=== PATIENT | male | born 1970 | race Caucasian/White ===

== ENCOUNTER 2017-05-09 19:20 | Emergency (ER) | payer BC ==
[~2017-05-09] VITALS: Ht 160 cm; Wt 104.6 kg
[~2017-05-09 19:20] MED LIST: JANU25TA PO; LUTE20CA PO; METF-324 PO; OMEGCAP21 PO; PRIN5TAB PO; PROM25SU8 PO
[2017-05-09 19:40] VITALS: BP 160/99; PULSE 73; RESP 16; TEMP 98.4; O2SAT 98
[2017-05-09] MEDS ORDERED: IBUP800T23 PO (20:37)
[2017-05-09] MEDS ORDERED: PENI250T PO (20:37)
--- NOTE | 2017-05-09 20:38 | PD ---
HPI Chief Complaint: Oral / Dental Pain or Problem Time Seen by Provider: 20:00 Travel History International Travel<30 days: No Contact w/Intl Traveler<30days: No Traveled to known affect area: No History of Present Illness HPI 46-year-old male presents emergency department for evaluation of left dental pain 5 days. He reports the pain is located near a tooth he had a root canal several years ago. He reports the pain is constant, nonradiating, worse with chewing heat and cold, unrelieved by OTC Aleve, severity 7 out of 10. No associating symptoms. He denies fever, chills, chest pain, shortness of breath , abdominal pain, nausea or vomiting. PFSH Past Medical History Arthritis: Yes Asthma: Yes (EXERCISE INDUCED) Autoimmune Disease: No Blood Disorders: No Cancer: No Cardiovascular Problems: Yes High Cholesterol: Yes Diabetes: Yes (type 2) Patient Takes Glucophage: No Diminished Hearing: No Endocrine: No Gastrointestinal Disorders: Yes (chronic diarrhea) Genitourinary: Yes Hypertension: Yes (TAKES NO MEDS) Kidney Stones: Yes Musculoskeletal: Yes Neurologic: Yes (BROKEN NECK) Psychiatric: Yes Reproductive: No Respiratory: Yes (ASTHMATIC CONDITION) Immunizations Current: No Tetanus Vaccination: < 5 Years Influenza Vaccination: No PNEUMOCCOCAL Vaccine (Year): 2 ?: Not Past Surgical History Abdominal Surgery: No Cardiac Surgery: No Ear Surgery: No Endocrine Surgery: No Eye Surgery: No Genitourinary Surgery: Yes (STENTS, LITHOTRIPSY- KIDNEY STONES REMOVED) Gynecologic Surgery: No Oral Surgery: No Thoracic Surgery: No Other Surgery: Yes (ANKLE SURGERY, RT SHOULDER, NECK, CYST REMOVED ON COCCYX) Social History Alcohol Use: Yes (Rarely) Tobacco Use: No Substance Use: No Allergies-Medications (Allergen,Severity, Reaction): Coded Allergies: No Known Allergies (Unverified , 05/09/17) Reported Meds & Prescriptions Reported Meds & Active Scripts Active No Active Prescriptions or Reported Medications Review of Systems Except as stated in HPI: all other systems reviewed are Neg Physical Exam Narrative GENERAL: Alert, well-appearing male, holding the left side of his face. SKIN: Focused skin assessment warm/dry. HEAD: Atraumatic. Normocephalic. EYES: Pupils equal and round. No scleral icterus. No injection or drainage. ENT: No nasal bleeding or discharge. Mucous membranes pink and moist. MOUTH: Tooth #20 and 21 tender to palpation, mild gum erythema. NECK: Trachea midline. No JVD. CARDIOVASCULAR: Regular rate and rhythm. No murmur appreciated. RESPIRATORY: No accessory muscle use. Clear to auscultation. Breath sounds equal bilaterally. GASTROINTESTINAL: Abdomen soft, non-tender, nondistended. Hepatic and splenic margins not palpable. MUSCULOSKELETAL: No obvious deformities. No clubbing. No cyanosis. No edema. NEUROLOGICAL: Awake and alert. No obvious cranial nerve deficits. Motor grossly within normal limits. Normal speech. PSYCHIATRIC: Appropriate mood and affect; insight and judgment normal. Data Data Last Documented VS Vital Signs Date Time Temp Pulse Resp B/P Pulse Ox O2 Delivery O2 Flow Rate FiO2 05/09/17 19:40 98.4 73 16 160/99 98 MDM Medical Decision Making Medical Screen Exam Complete: Yes Emergency Medical Condition: Yes Differential Diagnosis Dental caries, dental abscess, periodontal disease, TMJ Narrative Course 46 old male presents emergency department for left lower dental pain 5 days. He reports he has an appointment with his dentist for next week. He reports the pain is worse with eating, chewing, heat and cold. Similar to previous dental pain in the past. No other associating symptoms. Denies fever or chills. On exam he is found to have tenderness over tooth #21 and 20. He also has tenderness to the left lower jaw and the right region of the teeth. Patient was put on antibiotics instructed to follow up with his dentist. Return to emergency department if he develops worsening symptoms. Patient agrees to plan Diagnosis Primary Impression: Pain, dental Referrals: Dentist Additional Instructions: Take medication as prescribed. Follow-up with the dentist as scheduled. Return to emergency if new or worsening symptoms. Scripts Penicillin V Potassium 250 Mg [id number] Mg PO Q6H #28 TAB Prov:Marilynn Stubbs 05/09/17 Ibuprofen 800 Mg [id number] Mg PO Q8H PRN (Pain/Inflammation) #30 TAB Prov:Marilynn Stubbs 05/09/17 Disposition: 01 DISCHARGE HOME Condition: Stable Marilynn Stubbs May 09, 2017 20:38
[2017-05-09] MEDS ORDERED: KETOROLAC TROMETHAMINE 60 MG/2 ML (IM) VIAL IM ONE (20:45)
== END 2017-05-09 20:45 | disposition home or self-care (01) ==
LOC: PHEFT 19:20
DX: K08.89 Other specified disorders of teeth and supporting structures (principal); E78.00 Pure hypercholesterolemia, unspecified; E11.9 Type 2 diabetes mellitus without complications; I10 Essential (primary) hypertension; J45.909 Unspecified asthma, uncomplicated
CPT/HCPCS: 96372; 99284; J1885

== ENCOUNTER 2017-10-13 17:14 | Emergency (ER) | payer BC ==
[~2017-10-13] VITALS: Ht 162.6 cm; Wt 100.7 kg
[~2017-10-13 17:14] MED LIST changes: +IBUP1TAB7 PO; -JANU25TA PO; -LUTE20CA PO; -METF-324 PO; -OMEGCAP21 PO; +PENI250T PO; -PRIN5TAB PO; -PROM25SU8 PO
[2017-10-13 17:20] VITALS: BP 168/79; PULSE 82; RESP 16; TEMP 99; O2SAT 97
[2017-10-13] MEDS ORDERED: SODIUM CHLORIDE 0.9% FLUSH 10 ML FLUSH IVF PRN (17:30)
[2017-10-13] MEDS ORDERED: CLINDAMYCIN INJ 900 MG in SODIUM CHLORIDE 0.9% INJ 100 ML IV ONE (17:30)
[2017-10-13] MEDS ORDERED: LIDOCAINE HCL 1% 50 ML VIAL INFIL ONE (17:30)
[2017-10-13 18:04] LABS: AUTOMATED NEUTROPHIL # 6.1 TH/MM3 (1.8-7.7); BASOPHIL % 0.4 % (0.0-2.0); EOSINOPHIL # 0.1 TH/MM3 (0-0.4); EOSINOPHIL % 1.4 % (0.0-4.0); HEMATOCRIT 41.8 % (39.0-51.0); HEMO FLAGS DIFF FINAL; LYMPHOCYTE # 1.9 TH/MM3 (1.0-4.8); MEAN CORPUSCULAR HEMOGLOBIN 27.5 PG (27.0-34.0); MEAN CORPUSCULAR HGB CONC 32.8 % (32.0-36.0); MONO % 4.8 % (0.0-8.0); NEUT % 70.4 % (16.0-70.0); PLATELET COUNT 188 TH/MM3 (150-450); RED BLOOD COUNT 4.98 MIL/MM3 (4.50-5.90); RED CELL DISTRIBUTION WIDTH 12.2 % (11.6-17.2); WHITE BLOOD COUNT 8.5 TH/MM3 (4.0-11.0)
--- NOTE | 2017-10-13 18:08 | PD ---
HPI . Abscess Chief Complaint: Skin Problem Time Seen by Provider: 17:30 Travel History International Travel<30 days: No Contact w/Intl Traveler<30days: No Traveled to known affect area: No History of Present Illness HPI This patient presents complaining with an abdominal wall abscess which started about a week ago. It started draining purulent material last night. It has also become much more painful. He rates the pain 7/10. He has been treating it at home with warm Epsom salt soaks. No associated fever. This patient has a history of diabetes. He is prone to skin abscesses. He states that they normally just rupture at home and he does not have to be seen by doctor for them. He states that he has not been on any recent antibiotics. PFSH Past Medical History Arthritis: Yes Asthma: Yes (EXERCISE INDUCED) Autoimmune Disease: No Blood Disorders: No Cancer: No Cardiovascular Problems: Yes (hx of HTN but controlled by diet) High Cholesterol: Yes Diabetes: Yes Patient Takes Glucophage: No Diminished Hearing: No Endocrine: No Gastrointestinal Disorders: Yes (chronic diarrhea) Genitourinary: Yes Hypertension: Yes (TAKES NO MEDS) Kidney Stones: Yes Musculoskeletal: Yes Neurologic: Yes (BROKEN NECK) Psychiatric: Yes Reproductive: No Respiratory: Yes (ASTHMATIC CONDITION) Immunizations Current: No PNEUMOCCOCAL Vaccine (Year): 2 Past Surgical History Abdominal Surgery: No Cardiac Surgery: No Ear Surgery: No Endocrine Surgery: No Eye Surgery: No Genitourinary Surgery: Yes (STENTS, LITHOTRIPSY- KIDNEY STONES REMOVED) Gynecologic Surgery: No Oral Surgery: No Thoracic Surgery: No Other Surgery: Yes (ANKLE SURGERY, RT SHOULDER, NECK, CYST REMOVED ON COCCYX) Social History Alcohol Use: Yes (Rarely) Tobacco Use: No Substance Use: No Allergies-Medications (Allergen,Severity, Reaction): Coded Allergies: No Known Allergies (Unverified Allergy, Unknown, 10/13/17) Reported Meds & Prescriptions Reported Meds & Active Scripts Active Metformin (Metformin HCl) 850 Mg Tab 850 Mg PO BIDPC 30 Days Review of Systems Except as stated in HPI: all other systems reviewed are Neg General / Constitutional: No: Fever, Chills Gastrointestinal: No: Nausea, Vomiting, Loss of Appetite Skin: Positive Change in Pigmentation, Positive Other (draining wound) Physical Exam Narrative GENERAL: Awake and alert and in no acute distress. SKIN: Warm and dry. He has an area of erythema under the left side of his pannus. It is markedly tender. There is an area in the center about the size of a quarter which is draining some purulent material. HEAD: Normocephalic/atraumatic. EYES: Pupils are equal. Extraocular movements are intact. NECK: Normal range of motion. CARDIOVASCULAR: Regular rate and rhythm. RESPIRATORY: Nonlabored respirations. MUSCULOSKELETAL: Atraumatic. NEUROLOGICAL: Nonfocal. PSYCHIATRIC: Appropriate mood and affect. Data Data Last Documented VS Vital Signs Date Time Temp Pulse Resp B/P (MAP) Pulse Ox O2 Delivery O2 Flow Rate FiO2 10/13/17 20:02 79 16 97 10/13/17 19:59 Room Air 10/13/17 17:20 99.0 Orders Orders Basic Metabolic Panel (Bmp) (10/13/17 17:30) Complete Blood Count With Diff (10/13/17 17:30) Blood Culture (10/13/17 17:30) Wound Culture And Gram Stain (10/13/17 17:30) Iv Access Insert/Monitor (10/13/17 17:30) Lidocaine 1% Inj (50 Ml) (Xylocaine 1% I (10/13/17 17:30) Sodium Chloride 0.9% Flush (Ns Flush) (10/13/17 17:30) Clindamycin Inj (Cleocin Inj) (10/13/17 17:30) Lactic Acid (10/13/17 17:32) Ct Abd/Pel W Iv Contrast(Rout) (10/13/17 17:30) Morphine Inj (Morphine Inj) (10/13/17 18:15) Ondansetron Inj (Zofran Inj) (10/13/17 18:15) Mrsa Screen (10/13/17 18:08) Iohexol 350 Inj (Omnipaque 350 Inj) (10/13/17 18:40) Ed Discharge Order (10/13/17 19:35) Labs Laboratory Tests Test 10/13/17 17:40 10/13/17 17:45 Lactic Acid Level 1.8 mmol/L White Blood Count 8.5 TH/MM3 Red Blood Count 4.98 MIL/MM3 Hemoglobin 13.7 GM/DL Hematocrit 41.8 % Mean Corpuscular Volume 84.0 FL Mean Corpuscular Hemoglobin 27.5 PG Mean Corpuscular Hemoglobin Concent 32.8 % Red Cell Distribution Width 12.2 % Platelet Count 188 TH/MM3 Mean Platelet Volume 9.1 FL Neutrophils (%) (Auto) 70.4 % Lymphocytes (%) (Auto) 23.0 % Monocytes (%) (Auto) 4.8 % Eosinophils (%) (Auto) 1.4 % Basophils (%) (Auto) 0.4 % Neutrophils # (Auto) 6.1 TH/MM3 Lymphocytes # (Auto) 1.9 TH/MM3 Monocytes # (Auto) 0.4 TH/MM3 Eosinophils # (Auto) 0.1 TH/MM3 Basophils # (Auto) 0.0 TH/MM3 CBC Comment DIFF FINAL Differential Comment Blood Urea Nitrogen 10 MG/DL Creatinine 0.92 MG/DL Random Glucose 372 MG/DL Calcium Level 8.6 MG/DL Sodium Level 136 MEQ/L Potassium Level 3.8 MEQ/L Chloride Level 102 MEQ/L Carbon Dioxide Level 25.4 MEQ/L Anion Gap 9 MEQ/L Estimat Glomerular Filtration Rate 88 ML/MIN MDM Medical Decision Making Medical Screen Exam Complete: Yes Emergency Medical Condition: Yes Differential Diagnosis My differential diagnosis includes but is not limited to localized wound infection, cellulitis, abscess Narrative Course This patient presents with cellulitis/abscess of the lower abdominal wall. He is diabetic. The area has been IV and cultures have been sent. I have also sent a CBC, blood cultures and lactic acid he is being empirically treated with clindamycin. CT scan of the abdomen is pending to rule out intra-peritoneal extension. CBC & BMP Diagram 10/13/17 17:45 Calcium Level 8.6 LA 1.8 No evidence of sepsis. Last Impressions Abdomen/Pelvis CT 10/13/17 1730 Signed Impressions: Service Date/Time: Friday, October 13, 2017 18:24 - CONCLUSION: 1. Lower quadrant abscess with packing material and surrounding induration of the fat. No focal fluid collections. 2. Nonobstructing stone in the lower pole the left kidney. 3. Solitary small calcified gallstone. 4. Mild steatosis the liver. Derek Chen MD Procedures Procedure Narrative INCISION AND DRAINAGE OF ABSCESS: The area was prepped and was sterilely draped. A subcutaneous wheal of 1% Xylocaine with epi with a total number 10 mL was used to anesthetize the area properly. A number 11 scalpel was used to make a 2 -cm incision across the area of the abscess. The abscess was drained, complex loculations were broken down. Cultures were obtained. Quarter inch iodoform packing was placed in the wound. Sterile dressing applied. Patient advised to have packing removed in two days. Diagnosis Primary Impression: Abdominal wall abscess Patient Instructions: Abscess Incision and Drainage (DC), General Instructions , Narcotic given in the ED Med/Other Pt SpecificInfo: Prescription(s) given Scripts Metformin (Metformin) 850 Mg Tab 850 MG PO BIDPC for Blood Sugar Management for 30 Days, TAB 0 Refills Prov: Joyce Mars MD 10/13/17 Disposition: 01 DISCHARGE HOME Condition: Stable Karlee Orr MD Oct 13, 2017 18:08
[2017-10-13 18:12] LABS: POTASSIUM 3.8 MEQ/L (3.5-5.1)
[2017-10-13 18:15] LABS: BICARBONATE 25.4 MEQ/L (21.0-32.0)
[2017-10-13] MEDS ORDERED: MORPHINE SULFATE 4 MG/ML INJ IV ONE (18:15)
[2017-10-13] MEDS ORDERED: ONDANSETRON HCL 4 MG/2 ML VIAL IV PUSH ONE (18:15)
[2017-10-13] MEDS ORDERED: NORC5TAB PO (18:16)
[2017-10-13] MEDS ORDERED: BACT800T5 PO (18:16)
[2017-10-13 18:40] VITALS: BP 128/67; PULSE 79; RESP 16
[2017-10-13] MEDS ORDERED: IOHEXOL 350 MG/ML 10 ML VIAL (for RAD DIAG) IVCONTRAST ONE (18:40)
--- NOTE | 2017-10-13 19:07 | RADRPT ---
EXAM DATE/TIME: 10/13/2017 18:24 [facility] COMPARISON: No previous studies available for comparison. INDICATIONS : Abdominal wall abscess for one week. IV CONTRAST: 85 cc Omnipaque 350 (iohexol) IV ORAL CONTRAST: No oral contrast ingested. RADIATION DOSE: 20.94 CTDIvol (mGy) MEDICAL HISTORY : Hypertension. Diabetes mellitus type 2. SURGICAL HISTORY : None. ENCOUNTER: Initial ACUITY: 1 day PAIN SCALE: 5/10 LOCATION: lower abdomen TECHNIQUE: Volumetric scanning of the abdomen and pelvis was performed. Using automated exposure control and ad justment of the mA and/or kV according to patient size, radiation dose was kept as low as reasonably achievable to obtain optimal diagnostic quality images. DICOM format image data is available electro nically for review and comparison. FINDINGS: LOWER LUNGS: The visualized lower lungs are clear. LIVER: Mild diffuse fatty change. No focal lesions.. There is no dilation of the biliary tree. 6 mm calci fied stone in the gallbladder fundus.. SPLEEN: Normal size without lesion. PANCREAS: Within normal limits. KIDNEYS: Symmetric size. No evidence of hydronephrosis. Solitary 4 mm calcified stone lower pole left kidney . ADRENAL GLANDS: Within normal limits. VASCULAR: There is no aortic aneurysm. BOWEL/MESENTERY: No dilated loops of small or large bowel. The appendix is identified in the right lower quadrant and has a normal appearance. ABDOMINAL WALL: There is a focal area of discontinuity of the skin in the left lower quadrant with internal hyperdens ity and gas suggesting packing material. The area of hyperdensity and gas measures 2.9 cm in width. There is some mild induration of the adjacent skin and subcutaneous fat. No induration deep to scar this fashion. No focal fluid collections. RETROPERITONEUM: There is no lymphadenopathy. BLADDER: Mild distention. Smooth margins. REPRODUCTIVE: Within normal limits. INGUINAL: There is no lymphadenopathy or hernia. MUSCULOSKELETAL: Within normal limits for patient age. CONCLUSION: 1. Lower quadrant abscess with packing material and surrounding induration of the fat. No focal flui d collections. 2. Nonobstructing stone in the lower pole the left kidney. 3. Solitary small calcified gallstone. 4. Mild steatosis the liver. Derek Chen MD on October 13, 2017 at 18:53 Board Certified Radiologist. This report was verified electronically.
[2017-10-13] MEDS ORDERED: METF850T PO (19:34)
--- NOTE | 2017-10-13 19:34 | PD ---
Physical Exam Date Seen by Provider: Oct 13, 2017 Time Seen by Provider: 19:29 Narrative Accepted in transfer of care from Dr. Orr GENERAL: Well-developed well-nourished male in no acute distress no respiratory distress SKIN: Warm and dry. Dressing applied to left lower quadrant abdominal wall pannus area status post recent I&D with packing by Dr. Orr GASTROINTESTINAL: Abdomen soft, non-tender, nondistended. Data Data Last Documented VS Vital Signs Date Time Temp Pulse Resp B/P (MAP) Pulse Ox O2 Delivery O2 Flow Rate FiO2 10/13/17 18:42 16 10/13/17 18:40 79 128/67 (87) Room Air 10/13/17 17:20 99.0 97 Orders Orders Basic Metabolic Panel (Bmp) (10/13/17 17:30) Complete Blood Count With Diff (10/13/17 17:30) Blood Culture (10/13/17 17:30) Wound Culture And Gram Stain (10/13/17 17:30) Iv Access Insert/Monitor (10/13/17 17:30) Lidocaine 1% Inj (50 Ml) (Xylocaine 1% I (10/13/17 17:30) Sodium Chloride 0.9% Flush (Ns Flush) (10/13/17 17:30) Clindamycin Inj (Cleocin Inj) (10/13/17 17:30) Lactic Acid (10/13/17 17:32) Ct Abd/Pel W Iv Contrast(Rout) (10/13/17 17:30) Morphine Inj (Morphine Inj) (10/13/17 18:15) Ondansetron Inj (Zofran Inj) (10/13/17 18:15) Mrsa Screen (10/13/17 18:08) Iohexol 350 Inj (Omnipaque 350 Inj) (10/13/17 18:40) Labs Laboratory Tests Test 10/13/17 17:40 10/13/17 17:45 Lactic Acid Level 1.8 mmol/L White Blood Count 8.5 TH/MM3 Red Blood Count 4.98 MIL/MM3 Hemoglobin 13.7 GM/DL Hematocrit 41.8 % Mean Corpuscular Volume 84.0 FL Mean Corpuscular Hemoglobin 27.5 PG Mean Corpuscular Hemoglobin Concent 32.8 % Red Cell Distribution Width 12.2 % Platelet Count 188 TH/MM3 Mean Platelet Volume 9.1 FL Neutrophils (%) (Auto) 70.4 % Lymphocytes (%) (Auto) 23.0 % Monocytes (%) (Auto) 4.8 % Eosinophils (%) (Auto) 1.4 % Basophils (%) (Auto) 0.4 % Neutrophils # (Auto) 6.1 TH/MM3 Lymphocytes # (Auto) 1.9 TH/MM3 Monocytes # (Auto) 0.4 TH/MM3 Eosinophils # (Auto) 0.1 TH/MM3 Basophils # (Auto) 0.0 TH/MM3 CBC Comment DIFF FINAL Differential Comment Blood Urea Nitrogen 10 MG/DL Creatinine 0.92 MG/DL Random Glucose 372 MG/DL Calcium Level 8.6 MG/DL Sodium Level 136 MEQ/L Potassium Level 3.8 MEQ/L Chloride Level 102 MEQ/L Carbon Dioxide Level 25.4 MEQ/L Anion Gap 9 MEQ/L Estimat Glomerular Filtration Rate 88 ML/MIN [facility] Medical Record Reviewed: Yes Supervised Visit with LAVONNE: No Interpretation(s) Lactic acid: 1.8, not elevated Last Impressions Abdomen/Pelvis CT 10/13/17 1730 Signed Impressions: Service Date/Time: Sunday, October 13, 2017 18:24 - CONCLUSION: 1. Lower quadrant abscess with packing material and surrounding induration of the fat. No focal fluid collections. 2. Nonobstructing stone in the lower pole the left kidney. 3. Solitary small calcified gallstone. 4. Mild steatosis the liver. Derek Chen MD CBC & BMP Diagram 10/13/17 17:45 Calcium Level 8.6 Vital Signs Date Time Temp Pulse Resp B/P (MAP) Pulse Ox O2 Delivery O2 Flow Rate FiO2 10/13/17 18:42 16 10/13/17 18:40 79 16 128/67 (87) Room Air 10/13/17 17:20 99.0 82 16 168/79 (108) 97 Differential Diagnosis Accepted in transfer of care from Dr. Orr; please refer to her dictation Narrative Course Accepted in transfer of care from Dr. Orr for follow up of pending CT abd/ pel and disposition as plan to d/c to home with Rx for antibiotic and recheck for packing removal in 2 days. Patient is aware of his lab and imaging results. Patient again denies any fever or chills. Patient is tolerating antibiotic well in the emergency department has prescriptions for outpatient antibiotic. Patient is stable for outpatient management but does report that he does need a refill of his metformin. Diagnosis Primary Impression: Abdominal wall abscess Referrals: [facility] call for appointment Primary Care Physician call for appointment Patient Instructions: General Instructions, Narcotic given in the ED, Abscess Incision and Drainage (DC) Med/Other Pt SpecificInfo: Prescription(s) given Scripts Metformin (Metformin) 850 Mg Tab 850 MG PO BIDPC for Blood Sugar Management for 30 Days, TAB 0 Refills Prov: Joyce Mars MD 10/13/17 Disposition: 01 DISCHARGE HOME Condition: Stable Joyce Mars MD Oct 13, 2017 19:34
[2017-10-13 19:59] VITALS: BP 143/69; PULSE 79; RESP 16; O2SAT 97
== END 2017-10-13 20:04 | disposition home or self-care (01) ==
LOC: PHED 17:14
DX: L02.211 Cutaneous abscess of abdominal wall (principal); B95.1 Streptococcus, group B, as the cause of diseases classified elsewhere; E11.9 Type 2 diabetes mellitus without complications; I10 Essential (primary) hypertension; E78.00 Pure hypercholesterolemia, unspecified; Z79.84 Long term (current) use of oral hypoglycemic drugs; Z87.39 Personal history of other diseases of the musculoskeletal system and connective tissue; Z87.09 Personal history of other diseases of the respiratory system; Z86.79 Personal history of other diseases of the circulatory system; Z87.19 Personal history of other diseases of the digestive system; Z87.448 Personal history of other diseases of urinary system; Z86.69 Personal history of other diseases of the nervous system and sense organs
CPT/HCPCS: 74177; 80048; 83605; 85025; 86403; 87040; 87070; 87081; 96365; 96375; 99285; J2270; J2405; Q9967; 87205

== ENCOUNTER 2017-10-15 15:46 | Inpatient (IN) | payer BC ==
[~2017-10-15] VITALS: Ht 162.6 cm; Wt 101.6 kg
[~2017-10-15 15:46] MED LIST changes: -IBUP1TAB7 PO; +METF850T PO; -PENI250T PO
[2017-10-15 16:02] VITALS: BP 168/80; PULSE 75; RESP 18; TEMP 98.5; O2SAT 98
[2017-10-15] MEDS ORDERED: MORPHINE SULFATE 4 MG/ML INJ IM ONE (17:30)
[2017-10-15] MEDS ORDERED: ONDANSETRON ODT 4 MG TAB PO ONE (17:30)
[2017-10-15] MEDS ORDERED: PIPERACIL-TAZO 4.5 GM PREMIX 100 ML IV STA (17:36)
[2017-10-15] MEDS ORDERED: VANCOMYCIN INJ 1,000 MG in SODIUM CHLOR 0.9% 250 ML INJ 250 ML IV STA (17:36)
--- NOTE | 2017-10-15 17:42 | PD ---
Physical Exam Date Seen by Provider: Oct 15, 2017 Time Seen by Provider: 17:40 Narrative 47-year-old male came to the emergency room with history of wound reevaluation. He was seen 2 days ago in this emergency room for abdominal wall abscess that was opened and drained by the ER physician. Patient was discharged home on antibiotics. Patient has been taking the antibiotic that she supposed to. He came to get the packing taken out but meanwhile he says that his redness around the wound is spreading and the pain is still severe. Patient is being seen by the nurse practitioner and I evaluated the wound. The wound is deep with some surrounding redness. Patient is diabetic and the wound culture was positive for group B strep. At this point I have recommended to do blood test and admit the patient for outpatient treatment failure. He will be started on IV Zosyn. I've asked the nurse practitioner to consult the general surgeon as well. Patient and his are okay with this plan. Data Data Last Documented VS Vital Signs Date Time Temp Pulse Resp B/P (MAP) Pulse Ox O2 Delivery O2 Flow Rate FiO2 10/15/17 16:02 98.5 75 18 168/80 (109) 98 Orders Orders Morphine Inj (Morphine Inj) (10/15/17 17:30) Ondansetron Odt (Zofran Odt) (10/15/17 17:30) Complete Blood Count With Diff (10/15/17 17:36) Comprehensive Metabolic Panel (10/15/17 17:36) Prothrombin Time / Inr (Pt) (10/15/17 17:36) Act Partial Throm Time (Ptt) (10/15/17 17:36) Lactic Acid Sepsis Protocol (10/15/17 17:36) Blood Culture (10/15/17 17:36) Ecg Monitoring (10/15/17 17:36) Iv Access Insert/Monitor (10/15/17 17:36) Oximetry (10/15/17 17:36) Ondansetron Inj (Zofran Inj) (10/15/17 17:45) Piperacil-Tazo 4.5 Gm Premix (Zosyn 4.5 (10/15/17 17:36) Vancomycin Inj (Vancomycin Inj) (10/15/17 17:36) C-Reactive Protein (Crp) (10/15/17 17:36) Westergren Sedimentation Rate (10/15/17 17:36) Morphine Inj (Morphine Inj) (10/15/17 17:45) MDM Supervised Visit with LAVONNE: Phillip Lopez MD Oct 15, 2017 17:42
--- NOTE | 2017-10-15 17:43 | PD ---
HPI Chief Complaint: Wound/Suture/Staple Re-Check Time Seen by Provider: 17:17 Travel History International Travel<30 days: No Contact w/Intl Traveler<30days: No Traveled to known affect area: No History of Present Illness HPI 47-year-old male presents to the emergency department for evaluation of abscess to the abdominal wall. Patient was seen here 2 days ago in the emergency department. Patient is diabetic as well. He denies any fevers. He is currently taking Bactrim without improvement. He states the pain is still pretty significant. Currently 7 out of 10 without radiation of pain. Patient states that he cannot see the wound himself. His at bedside states that the erythema has gotten slightly worse, but is unsure if this is due to bandages. Severity is moderate. Pain medication will slightly alleviate the pain. Exacerbating factors are improved wrist, palpation of the area. PFSH Past Medical History Arthritis: Yes Asthma: Yes (EXERCISE INDUCED) Autoimmune Disease: No Blood Disorders: No Cancer: No Cardiovascular Problems: Yes (hx of HTN but controlled by diet) High Cholesterol: Yes Diabetes: Yes Patient Takes Glucophage: Yes Diminished Hearing: No Endocrine: No Gastrointestinal Disorders: Yes (chronic diarrhea) Genitourinary: Yes Hypertension: Yes (TAKES NO MEDS) Kidney Stones: Yes Musculoskeletal: Yes Neurologic: Yes (BROKEN NECK) Psychiatric: Yes Reproductive: No Respiratory: Yes (ASTHMATIC CONDITION) Immunizations Current: No PNEUMOCCOCAL Vaccine (Year): 2 Past Surgical History Abdominal Surgery: No Cardiac Surgery: No Ear Surgery: No Endocrine Surgery: No Eye Surgery: No Genitourinary Surgery: Yes (STENTS, LITHOTRIPSY- KIDNEY STONES REMOVED) Gynecologic Surgery: No Oral Surgery: No Thoracic Surgery: No Other Surgery: Yes (ANKLE SURGERY, RT SHOULDER, NECK, CYST REMOVED ON COCCYX) Social History Alcohol Use: Yes (Rarely) Tobacco Use: No Substance Use: No Allergies-Medications (Allergen,Severity, Reaction): Coded Allergies: No Known Allergies (Unverified Allergy, Unknown, 10/15/17) Reported Meds & Prescriptions Reported Meds & Active Scripts Active Metformin (Metformin HCl) 850 Mg Tab 850 Mg PO BIDPC 30 Days Review of Systems Except as stated in HPI: all other systems reviewed are Neg Physical Exam Narrative GENERAL: Well-nourished, well-developed male patient, ambulatory. Afebrile. SKIN: Focused skin assessment warm/dry. Patient has abscess to the left lower abdomen that is status post incision and drainage with packing in place. There is some mild surrounding erythema. HEAD: Normocephalic. Atraumatic. EYES: No scleral icterus. No injection or drainage. NECK: Supple, trachea midline. No JVD or lymphadenopathy. CARDIOVASCULAR: Regular rate and rhythm without murmurs, gallops, or rubs. RESPIRATORY: Breath sounds equal bilaterally. No accessory muscle use. Lungs sounds are clear to auscultation. GASTROINTESTINAL: Abdomen soft and nondistended. MUSCULOSKELETAL: No cyanosis, or edema. BACK: Nontender without obvious deformity. No CVA tenderness. Data Data Last Documented VS Vital Signs Date Time Temp Pulse Resp B/P (MAP) Pulse Ox O2 Delivery O2 Flow Rate FiO2 10/15/17 18:21 98 10/15/17 18:21 68 20 137/79 (98) 10/15/17 16:02 98.5 Orders Orders Morphine Inj (Morphine Inj) (10/15/17 17:30) Ondansetron Odt (Zofran Odt) (10/15/17 17:30) Complete Blood Count With Diff (10/15/17 17:36) Comprehensive Metabolic Panel (10/15/17 17:36) Prothrombin Time / Inr (Pt) (10/15/17 17:36) Act Partial Throm Time (Ptt) (10/15/17 17:36) Lactic Acid Sepsis Protocol (10/15/17 17:36) Blood Culture (10/15/17 17:36) Ecg Monitoring (10/15/17 17:36) Iv Access Insert/Monitor (10/15/17 17:36) Oximetry (10/15/17 17:36) Ondansetron Inj (Zofran Inj) (10/15/17 17:45) Piperacil-Tazo 4.5 Gm Premix (Zosyn 4.5 (10/15/17 17:36) Vancomycin Inj (Vancomycin Inj) (10/15/17 17:36) C-Reactive Protein (Crp) (10/15/17 17:36) Westergren Sedimentation Rate (10/15/17 17:36) Morphine Inj (Morphine Inj) (10/15/17 17:45) Morphine Inj (Morphine Inj) (10/15/17 19:30) Admit Order (Ed Use Only) (10/15/17 19:16) Consult General Surgery (10/15/17 ) Vancomycin Consult Pharmacy (Vancomycin (10/15/17 19:30) Vancomycin Inj (Vancomycin Inj) (10/15/17 19:30) Piperacil-Tazo 3.375 Gm Premix (Zosyn 3. (10/15/17 23:30) Place In Observation (10/15/17 ) Vital Signs (Adult) Q4H (10/15/17 19:16) Activity Oob With Assistance (10/15/17 19:16) Bedside Glucose CLAIRE.CSUGAR (10/15/17 19:16) Diet Npo (10/16/17 Breakfast) Sodium Chlor 0.9% 1000 Ml Inj (Ns 1000 M (10/15/17 19:16) Sodium Chloride 0.9% Flush (Ns Flush) (10/15/17 19:30) Sodium Chloride 0.9% Flush (Ns Flush) (10/15/17 21:00) Acetaminophen (Tylenol) (10/15/17 19:30) Ondansetron Inj (Zofran Inj) (10/15/17 19:30) Basic Metabolic Panel (Bmp) (10/16/17 06:00) Complete Blood Count With Diff (10/16/17 06:00) Case Management Consult (10/15/17 19:16) Scd Bilateral/Knee High CLAIRE.BID (10/15/17 19:16) Naloxone Inj (Narcan Inj) (10/15/17 19:30) Docusate Sodium-Senna (Hazel-Colace) (10/15/17 21:00) Magnesium Hydroxide Liq (Milk Of Magnesi (10/15/17 19:30) Sennosides (Senokot) (10/15/17 19:30) Bisacodyl Supp (Dulcolax Supp) (10/15/17 19:30) Lactulose Liq (Lactulose Liq) (10/15/17 19:30) Consult General Surgery (10/15/17 ) Labs Laboratory Tests Test 10/15/17 17:50 White Blood Count 7.3 TH/MM3 Red Blood Count 5.05 MIL/MM3 Hemoglobin 14.0 GM/DL Hematocrit 42.1 % Mean Corpuscular Volume 83.3 FL Mean Corpuscular Hemoglobin 27.7 PG Mean Corpuscular Hemoglobin Concent 33.2 % Red Cell Distribution Width 12.2 % Platelet Count 247 TH/MM3 Mean Platelet Volume 8.3 FL Neutrophils (%) (Auto) 56.9 % Lymphocytes (%) (Auto) 32.4 % Monocytes (%) (Auto) 6.9 % Eosinophils (%) (Auto) 3.3 % Basophils (%) (Auto) 0.5 % Neutrophils # (Auto) 4.2 TH/MM3 Lymphocytes # (Auto) 2.4 TH/MM3 Monocytes # (Auto) 0.5 TH/MM3 Eosinophils # (Auto) 0.2 TH/MM3 Basophils # (Auto) 0.0 TH/MM3 CBC Comment DIFF FINAL Differential Comment Erythrocyte Sedimentation Rate 15 mm/hr Prothrombin Time 10.7 SEC Prothromb Time International Ratio 1.0 RATIO Activated Partial Thromboplast Time 27.3 SEC Blood Urea Nitrogen 13 MG/DL Creatinine 0.81 MG/DL Random Glucose 136 MG/DL Total Protein 7.9 GM/DL Albumin 3.6 GM/DL Calcium Level 9.4 MG/DL Alkaline Phosphatase 92 U/L Aspartate Amino Transf (AST/SGOT) 22 U/L Alanine Aminotransferase (ALT/SGPT) 46 U/L Total Bilirubin 0.5 MG/DL Sodium Level 137 MEQ/L Potassium Level 3.4 MEQ/L Chloride Level 101 MEQ/L Carbon Dioxide Level 27.7 MEQ/L Anion Gap 8 MEQ/L Estimat Glomerular Filtration Rate 102 ML/MIN Lactic Acid Level 1.5 mmol/L MDM Medical Decision Making Medical Screen Exam Complete: Yes Emergency Medical Condition: Yes Medical Record Reviewed: Yes Differential Diagnosis Abscess versus cellulitis versus sepsis Narrative Course 47 old male presents to the emergency department for evaluation of abdominal wall abscess that was incised and drained 2 days ago. Patient states the pain has not improved. He now has some worsening surrounding erythema. Packing is removed without difficulty. However, the patient experienced severe pain with packing removal. The abscess is quite deep, approximately 3-4 cm deep. The consult and my attending physician, Dr. Huerta, who examined the abscess as well. She recommends repeat lab work on contact Gen. surgery, admit patient for IV antibiotics. Microbiology result is positive for group B beta strep. CBC, CMP, PTT, PT/INR, lactic acid, ESR, CRP are ordered and pending. Patient is given morphine 4 mg IV, Zofran 4 mg IV, vancomycin 1 g IV, Zosyn 4.5 g IV. CBC is unremarkable. CMP shows hyperglycemia 136. Lactic acid is 1.5. ESR is 15. CRP is pending. Coags are unremarkable. I spoke to Dr. Dorsey, Gen. surgeon, who will consult on patient report orange. Dr. Arroyo accepted admission. Diagnosis Primary Impression: Abdominal wall abscess Additional Impressions: Failure of outpatient treatment Diabetes Qualified Codes: E11.8 - Type 2 diabetes mellitus with unspecified complications Admitting Information Admitting Physician Requests: Admit Yessica Villarreal Oct 15, 2017 17:43
[2017-10-15] MEDS ORDERED: ONDANSETRON HCL 4 MG/2 ML VIAL IV PUSH ONE (17:45)
[2017-10-15] MEDS ORDERED: MORPHINE SULFATE 4 MG/ML INJ IV PUSH ONE ×2 (17:45→19:30)
[2017-10-15 18:05] LABS: AUTOMATED NEUTROPHIL # 4.2 TH/MM3 (1.8-7.7); BASOPHIL % 0.5 % (0.0-2.0); EOSINOPHIL # 0.2 TH/MM3 (0-0.4); EOSINOPHIL % 3.3 % (0.0-4.0); HEMATOCRIT 42.1 % (39.0-51.0); HEMO FLAGS DIFF FINAL; LYMPH % 32.4 % (9.0-44.0); LYMPHOCYTE # 2.4 TH/MM3 (1.0-4.8); MEAN CELL VOLUME 83.3 FL (80.0-100.0); MEAN CORPUSCULAR HEMOGLOBIN 27.7 PG (27.0-34.0); MEAN CORPUSCULAR HGB CONC 33.2 % (32.0-36.0); MONO % 6.9 % (0.0-8.0); NEUT % 56.9 % (16.0-70.0); PLATELET COUNT 247 TH/MM3 (150-450); RED BLOOD COUNT 5.05 MIL/MM3 (4.50-5.90); RED CELL DISTRIBUTION WIDTH 12.2 % (11.6-17.2); WHITE BLOOD COUNT 7.3 TH/MM3 (4.0-11.0)
[2017-10-15 18:21] VITALS: BP 137/79; PULSE 68; RESP 20; O2SAT 96; O2SAT 98
[2017-10-15 18:23] LABS: APTT (PATIENT) 27.3 SEC (24.3-30.1); PROTHROMBIN TIME - PATIENT 10.7 SEC (9.8-11.6)
[2017-10-15 18:25] LABS: CHLORIDE 101 MEQ/L (98-107); POTASSIUM 3.4 MEQ/L (3.5-5.1); SODIUM (NA) 137 MEQ/L (136-145)
[2017-10-15 18:45] LABS: ALKALINE PHOSPHATASE 92 U/L (45-117); ALT (GPT) 46 U/L (12-78); ANION GAP 8 MEQ/L (5-15); AST (GOT) 22 U/L (15-37); BICARBONATE 27.7 MEQ/L (21.0-32.0); BLOOD UREA NITROGEN 13 MG/DL (7-18); GLOMERULAR FILTRATION RATE 102 ML/MIN (>89); TOTAL BILIRUBIN ADULT 0.5 MG/DL (0.2-1.0)
[2017-10-15] MEDS ORDERED: NALOXONE HCL 0.4 MG/ML AMP IV PUSH PRN (19:30)
[2017-10-15] MEDS ORDERED: MAGNESIUM HYDROXIDE SUSP 30 ML CUP PO PRN (19:30)
[2017-10-15] MEDS ORDERED: BISACODYL 10 MG SUPP RECTAL PRN (19:30)
[2017-10-15] MEDS ORDERED: Vancomycin Consult Pharmacy 1 EA OTHER SCH (19:30)
[2017-10-15] MEDS ORDERED: LACTULOSE SYRUP 20 GM/30 ML CUP PO PRN (19:30)
[2017-10-15] MEDS ORDERED: VANCOMYCIN INJ 1,000 MG in SODIUM CHLOR 0.9% 250 ML INJ 250 ML IV ONE (19:30)
[2017-10-15] MEDS ORDERED: SENNOSIDES 8.6 MG TAB PO PRN (19:30)
[2017-10-15 19:45] VITALS: BP 139/82; PULSE 67; RESP 16; O2SAT 95
[2017-10-15] MEDS: ONDANSETRON HCL 4 MG/2 ML VIAL IVP PRN (19:46)
[2017-10-15] MEDS: SODIUM CHLOR 0.9% 1000 ML INJ 1,000 ML IV SCH (20:05)
[2017-10-15 20:40] VITALS: BP 146/83; PULSE 66; RESP 20; TEMP 97.7; O2SAT 96
[2017-10-15] MEDS: DOCUSATE SODIUM 50 MG/SENNA 8.6 MG TAB PO SCH ×2 (21:00→21:13)
[2017-10-15] MEDS: SODIUM CHLORIDE 0.9% FLUSH 10 ML FLUSH IV FLUSH SCH (21:12)
[2017-10-15] MEDS ORDERED: MORPHINE SULFATE 2 MG/ML INJ IV PUSH PRN (22:30)
[2017-10-15] MEDS: MORPHINE SULFATE 4 MG/ML INJ IV PUSH PRN (22:57)
[2017-10-15] MEDS: SODIUM CHLORIDE 0.9% FLUSH 10 ML FLUSH IV FLUSH PRN (22:57)
[2017-10-16] VITALS (7 sets, daily range): BP systolic 117–156; BP diastolic 58–92; PULSE 59–74; RESP 18–20; TEMP 96.2–98; O2SAT 96–99
[2017-10-16] MEDS: PIPERACIL-TAZO 3.375 GM PREMIX 50 ML IV SCH ×2 (00:25→05:41)
[2017-10-16] MEDS: SODIUM CHLORIDE 0.9% FLUSH 10 ML FLUSH IV FLUSH PRN (05:41)
[2017-10-16] MEDS: MORPHINE SULFATE 4 MG/ML INJ IV PUSH PRN (05:41)
[2017-10-16 06:19] LABS: AUTOMATED NEUTROPHIL # 3.6 TH/MM3 (1.8-7.7); BASOPHIL % 0.5 % (0.0-2.0); EOSINOPHIL # 0.2 TH/MM3 (0-0.4); HEMATOCRIT 39.7 % (39.0-51.0); HEMO FLAGS DIFF FINAL; LYMPH % 26.4 % (9.0-44.0); LYMPHOCYTE # 1.5 TH/MM3 (1.0-4.8); MEAN CELL VOLUME 85.5 FL (80.0-100.0); MEAN CORPUSCULAR HEMOGLOBIN 27.6 PG (27.0-34.0); MEAN CORPUSCULAR HGB CONC 32.3 % (32.0-36.0); MONO % 6.8 % (0.0-8.0); NEUT % 62.3 % (16.0-70.0); PLATELET COUNT 173 TH/MM3 (150-450); RED BLOOD COUNT 4.64 MIL/MM3 (4.50-5.90); RED CELL DISTRIBUTION WIDTH 12.6 % (11.6-17.2); WHITE BLOOD COUNT 5.7 TH/MM3 (4.0-11.0)
[2017-10-16 06:26] LABS: POTASSIUM 3.6 MEQ/L (3.5-5.1)
[2017-10-16] MEDS: SODIUM CHLOR 0.9% 1000 ML INJ 1,000 ML IV SCH (08:23)
[2017-10-16] MEDS: SODIUM CHLORIDE 0.9% FLUSH 10 ML FLUSH IV FLUSH SCH ×2 (08:23→21:19)
[2017-10-16] MEDS: DOCUSATE SODIUM 50 MG/SENNA 8.6 MG TAB PO SCH ×2 (08:24→08:29)
[2017-10-16] MEDS ORDERED: VANCOMYCIN INJ 1,750 MG in SODIUM CHLORID 0.9% 500 ML INJ 500 ML IV SCH (09:00)
--- NOTE | 2017-10-16 09:29 | PD.CONS ---
cc: Casey Lyon MD [facility] Service CONSULTATION NOTE FOR SURGICAL ATTENDING, DR. CASEY LYON Consult Requested By Reason for Consult Left lower quadrant abdominal wall abscess failure of outpatient therapy Primary Care Physician No Primary Care Physician History of Present Illness Patient was seen in the emergency room a couple days ago where a left lower abdominal wall abscess was drained. He was treated with by mouth antibiotics but returned to the emergency room for a dressing change. The ER personnel that time felt that patient needed to be admitted with a follow -up visit with a surgeon. Patient has a tender area open draining wound to the left lower quadrant abdominal wall He says it is sore Review of Systems ROS Limitations: Clinical Condition (alert and cooperative) Eyes: DENIES: Blurred vision, Diplopia, Eye inflammation, Eye pain, Vision loss , Photosensitivity, Double Vision Ears, nose, mouth, throat: DENIES: Tinnitus, Hearing loss, Vertigo, Nasal discharge, Oral lesions, Throat pain, Hoarseness, Ear Pain, Running Nose, Epistaxis, Sinus Pain, Toothache, Odynophagia Respiratory: DENIES: Apneas, Cough, Snoring, Wheezing, Hemoptysis, Sputum production, Shortness of breath Cardiovascular: DENIES: Chest pain, Palpitations, Syncope, Dyspnea on Exertion , PND, Lower Extremity Edema, Orthopnea, Claudication Gastrointestinal: COMPLAINS OF: Abdominal pain (at abscess) Past Family Social History Past Medical History Diabetes Past Medical History Arthritis: Yes Asthma: Yes (EXERCISE INDUCED) Autoimmune Disease: No Blood Disorders: No Cancer: No Cardiovascular Problems: Yes (hx of HTN but controlled by diet) High Cholesterol: Yes Diabetes: Yes Patient Takes Glucophage: Yes Diminished Hearing: No Endocrine: No Gastrointestinal Disorders: Yes (chronic diarrhea) Genitourinary: Yes Hypertension: Yes (TAKES NO MEDS) Kidney Stones: Yes Musculoskeletal: Yes Neurologic: Yes (BROKEN NECK) Psychiatric: Yes Reproductive: No Respiratory: Yes (ASTHMATIC CONDITION) Immunizations Current: No PNEUMOCCOCAL Vaccine (Year): 2 Past Surgical History Abdominal Surgery: No Cardiac Surgery: No Ear Surgery: No Endocrine Surgery: No Eye Surgery: No Genitourinary Surgery: Yes (STENTS, LITHOTRIPSY- KIDNEY STONES REMOVED) Gynecologic Surgery: No Oral Surgery: No Thoracic Surgery: No Other Surgery: Yes (ANKLE SURGERY, RT SHOULDER, NECK, CYST REMOVED ON COCCYX) Reported Medications Current Medications Morphine Sulfate (Morphine Inj) 4 mg ONCE ONCE IM ; Start 10/15/17 at 17:30; Stop 10/15/17 at 17:39; Status DC Ondansetron HCl (Zofran Odt) 4 mg ONCE ONCE PO ; Start 10/15/17 at 17:30; Stop 10/15/17 at 17:39; Status DC Ondansetron HCl (Zofran Inj) 4 mg ONCE ONCE IV PUSH Last administered on 10/15 18:03; Start 10/15/17 at 17:45; Stop 10/15/17 at 17:46; Status DC Piperacillin Sod/ Tazobactam Sod 100 ml @ 200 mls/hr ONCE STAT IV Last administered on 10/15/17 18:04; Start 10/15/17 at 17:36; Stop 10/15/17 at 18 :05; Status DC Vancomycin HCl 1000 mg/Sodium Chloride 250 ml @ 250 mls/hr ONCE STAT IV Last administered on 10/15/17 19:20; Start 10/15/17 at 17:36; Stop 10/15/17 at 18 :35; Status DC Morphine Sulfate (Morphine Inj) 4 mg ONCE ONCE IV PUSH Last administered on 18:04; Start 10/15/17 at 17:45; Stop 10/15/17 at 17:46; Status DC Morphine Sulfate (Morphine Inj) 4 mg ONCE ONCE IV PUSH Last administered on 19:47; Start 10/15/17 at 19:30; Stop 10/15/17 at 19:31; Status DC Pharmacy Profile Note 0 ml @ 0 mls/hr UNSCH OTHER ; Start 10/15/17 at 19:30 Vancomycin HCl 1000 mg/Sodium Chloride 250 ml @ 250 mls/hr ONCE ONCE IV Last administered on 10/15/17 21:12; Start 10/15/17 at 19:30; Stop 10/15/17 at 20 :29; Status DC Piperacillin Sod/ Tazobactam Sod 50 ml @ 100 mls/hr Q6H IV Last administered on 10/16/17 05:41; Start 10/16/17 at 00:00 Sodium Chloride 1,000 ml @ 75 mls/hr [id number] IV Last administered on 08:23; Start 10/15/17 at 19:16 Sodium Chloride (NS Flush) 2 ml UNSCH PRN IV FLUSH FLUSH AFTER USING IV ACCESS Last administered on 10/16/17 05:41; Start 10/15/17 at 19:30 Sodium Chloride (NS Flush) 2 ml BID IV FLUSH Last administered on 10/15/17 21 :12; Start 10/15/17 at 21:00 Acetaminophen (Tylenol) 650 mg Q4H PRN PO TEMP > 100.4; Start 10/15/17 at 19: 30 Ondansetron HCl (Zofran Inj) 4 mg Q6H PRN IVP NAUSEA OR VOMITING Last administered on 10/15/17 19:46; Start 10/15/17 at 19:30 Naloxone HCl (Narcan Inj) 0.4 mg UNSCH PRN IV PUSH SEE LABEL COMMENTS; Start 10/15/17 at 19:30 Senna/Docusate Sodium (Hazel-Colace) 1 tab BID PO ; Start 10/15/17 at 21:00 Magnesium Hydroxide (Milk Of Magnesia Liq) 30 ml Q12H PRN PO Mild constipation ; Start 10/15/17 at 19:30 Sennosides (Senokot) 17.2 mg Q12H PRN PO Moderate constipation; Start at 19:30 Bisacodyl (Dulcolax Supp) 10 mg DAILY PRN RECTAL SEVERE CONSITIPATION; Start 10/15/17 at 19:30 Lactulose (Lactulose Liq) 30 ml DAILY PRN PO SEVERE CONSITIPATION; Start 10/15 at 19:30 Vancomycin HCl 1750 mg/Sodium Chloride 517.5 ml @ 250 mls/hr Q12H IV Last administered on 10/16/17 08:23; Start 10/16/17 at 09:00 Miscellaneous Information SPECIFIC LAB TO BE DRAWN:ANGELIO TROUGH DATE TO BE DR... ONCE ONCE .XX ; Start 10/17/17 at 08:45; Stop 10/17/17 at 08:46 Morphine Sulfate (Morphine Inj) 2 mg Q3H PRN IV PUSH pain 4 - 6; Start at 22:30 Morphine Sulfate (Morphine Inj) 4 mg Q3H PRN IV PUSH pain 7 - 10 Last administered on 10/16/17 05:41; Start 10/15/17 at 22:30 Allergies: Coded Allergies: No Known Allergies (Unverified Allergy, Unknown, 10/15/17) Family History Noncontributory Social History Noncontributory Physical Exam Vital Signs Vital Signs Date Time Temp Pulse Resp B/P (MAP) Pulse Ox O2 Delivery O2 Flow Rate FiO2 10/16/17 08:00 97.5 59 18 132/75 (94) 98 10/16/17 00:00 97.9 74 20 117/61 (79) 97 10/15/17 20:40 97.7 66 20 146/83 (104) 96 10/15/17 20:38 10/15/17 19:45 67 16 139/82 (101) 95 Room Air 10/15/17 18:21 98 10/15/17 18:21 68 20 137/79 (98) 96 10/15/17 16:02 98.5 75 18 168/80 (486) 98 Physical Exam GENERAL: Well-nourished, well-developed patient. Slightly overweight SKIN: Warm and dry. HEAD: Normocephalic. EYES: No scleral icterus. No injection or drainage. NECK: Supple, trachea midline. No JVD or lymphadenopathy. CARDIOVASCULAR: Regular rate and rhythm without murmurs, gallops, or rubs. RESPIRATORY: Breath sounds equal bilaterally. No accessory muscle use. GASTROINTESTINAL: Abdomen soft, non-tender, nondistended. Open wound to left lower quadrant measures approximately centimeter and a half wide centimeter deep adequate drainage mild necrotic tissue at the superior edge tender He has a skin fold at the panniculus where this wound is located EXTREMITIES: No cyanosis, or edema. NEUROLOGICAL: Awake, alert, and oriented x 3. Non-focal. Cooperative Laboratory Laboratory Tests Test 10/15/17 17:50 10/16/17 05:47 White Blood Count 7.3 5.7 Red Blood Count 5.05 4.64 Hemoglobin 14.0 12.8 Hematocrit 42.1 39.7 Mean Corpuscular Volume 83.3 85.5 Mean Corpuscular Hemoglobin 27.7 27.6 Mean Corpuscular Hemoglobin Concent 33.2 32.3 Red Cell Distribution Width 12.2 12.6 Platelet Count 247 173 Mean Platelet Volume 8.3 9.0 Neutrophils (%) (Auto) 56.9 62.3 Lymphocytes (%) (Auto) 32.4 26.4 Monocytes (%) (Auto) 6.9 6.8 Eosinophils (%) (Auto) 3.3 4.0 Basophils (%) (Auto) 0.5 0.5 Neutrophils # (Auto) 4.2 3.6 Lymphocytes # (Auto) 2.4 1.5 Monocytes # (Auto) 0.5 0.4 Eosinophils # (Auto) 0.2 0.2 Basophils # (Auto) 0.0 0.0 CBC Comment DIFF FINAL DIFF FINAL Differential Comment Erythrocyte Sedimentation Rate 15 Prothrombin Time 10.7 Prothromb Time International Ratio 1.0 Activated Partial Thromboplast Time 27.3 Blood Urea Nitrogen 13 13 Creatinine 0.81 0.84 Random Glucose 136 130 Total Protein 7.9 Albumin 3.6 Calcium Level 9.4 8.3 Alkaline Phosphatase 92 Aspartate Amino Transf (AST/SGOT) 22 Alanine Aminotransferase (ALT/SGPT) 46 Total Bilirubin 0.5 Sodium Level 137 141 Potassium Level 3.4 3.6 Chloride Level 101 105 Carbon Dioxide Level 27.7 28.0 Anion Gap 8 8 Estimat Glomerular Filtration Rate 102 98 Lactic Acid Level 1.5 C-Reactive Protein 2.90 Date/Time Source Procedure Growth Status 10/15/17 17:50 Blood Peripheral Aerobic Blood Culture Pending Received 10/15/17 17:50 Blood Peripheral Anaerobic Blood Culture Pending Received Result Diagram: 10/16/17 0547 10/16/[address] scan done previous ER visit reviewed showing a left lower quadrant abdominal abscess Assessment and Plan Problem List: (1) Left lower quadrant abdominal abscess ICD Codes: K65.1 - Peritoneal abscess Status: Acute (2) Open wound anterior abdominal wall ICD Codes: S31.109A - Unspecified open wound of abdominal wall, unspecified quadrant without penetration into peritoneal cavity, initial encounter Status: Acute (3) Abdominal wall abscess ICD Codes: L02.211 - Cutaneous abscess of abdominal wall Status: Acute (4) Diabetes ICD Codes: E11.9 - Type 2 diabetes mellitus without complications Status: Acute (5) Failure of outpatient treatment ICD Codes: Z78.9 - Other specified health status Status: Acute Assessment and Plan 47-year-old gentleman who is a diabetic has a abscess in the left lower quadrant of his abdomen that appears to be adequately drained. It is tender he is being treated with IV antibiotics. Plan this time I would continue the IV antibiotics Wet-to-dry dressing changes twice a day He may need home health to assist him with dressing changes for his difficult for him to see the wound because of his body habitus I will need to see him back in the office 2-3 days after discharge to follow this wound No surgical intervention at this time as it appears to be draining adequately Needs local wound care All told the patient not to put any Neosporin or Polysporin on the wound Attending Statement CONSULTATION NOTE FOR SURGICAL ATTENDING, DR. CASEY LYON I attest that I had a [id number] encounter with the patient on the same day, and personally performed and documented my assessment and findings in the medical record. The following services were provided during this hospital visit: Chart data review, vital sign assessments/reviewing monitor data Review of consultations notes if present. Medication orders/review and/or management Ordering and/or reviewing lab tests Ordering and/or interpreting/reviewing x-rays and/or diagnostic studies Care of the patient and discussion of the patient with the care team Documentation time To help prompt me to consider important information that might be impacting today's encounter and assessment, information from prior notes written by myself or my colleagues may have been "brought forward/copy and pasted" into today's note. Problem Qualifiers (1) Open wound anterior abdominal wall: Qualified Codes: S31.109A - Unspecified open wound of abdominal wall, unspecified quadrant without penetration into peritoneal cavity, initial encounter (2) Diabetes: Qualified Codes: E11.8 - Type 2 diabetes mellitus with unspecified complications Casey Lyon MD Oct 16, 2017 09:29
[2017-10-16] MEDS: ONDANSETRON HCL 4 MG/2 ML VIAL IVP PRN (09:32)
[2017-10-16] MEDS: ACETAMINOPHEN 325 MG TAB PO PRN ×2 (09:44→15:27)
--- NOTE | 2017-10-16 11:34 | HHI.HP ---
[facility] No Primary Care Physician Admission Diagnosis abdominal wall abscess, failed outpatient therapy, diabetes Diagnoses: Chief Complaint: Left abdominal abscess Travel History International Travel<30 Days: No Contact w/Intl Traveler <30 Da: No Traveled to Known Affected Are: No History of Present Illness Patient is a 47-year-old gentleman with diabetes. He had a left abdominal wall abscess that started about a week ago. He came to the emergency room 10/13 and had the area drained. Cultures from that date grew out group B strep. Patient was prescribed antibiotics in the form of ?Bactrim. Patient says the abdomen and began to hurt more and he had some more drainage. He came to the emergency room. He was started on IV antibiotics. Patient has not had any fevers or chills. He reports periodically gets skin infections which improve over time. For this left abdominal area the patient was applying Neosporin and dressing changes daily. He does have diabetes but this has been managed with metformin. He does not follow up with any primary care doctors because he says he can't get an appointment on his day off Review of Systems Constitutional: DENIES: Diaphoretic episodes, Fatigue, Fever, Weight gain, Weight loss, Chills, Dizziness, Change in appetite, Night Sweats Endocrine: DENIES: Heat/cold intolerance, Polydipsia, Polyuria, Polyphagia Eyes: DENIES: Blurred vision, Diplopia, Eye inflammation, Eye pain, Vision loss , Photosensitivity, Double Vision Ears, nose, mouth, throat: DENIES: Tinnitus, Hearing loss, Vertigo, Nasal discharge, Oral lesions, Throat pain, Hoarseness, Ear Pain, Running Nose, Epistaxis, Sinus Pain, Toothache, Odynophagia Respiratory: DENIES: Apneas, Cough, Snoring, Wheezing, Hemoptysis, Sputum production, Shortness of breath Cardiovascular: DENIES: Chest pain, Palpitations, Syncope, Dyspnea on Exertion , PND, Lower Extremity Edema, Orthopnea, Claudication Gastrointestinal: DENIES: Abdominal pain, Black stools, Bloody stools, Constipation, Diarrhea, Nausea, Vomiting, Difficulty Swallowing, Anorexia Genitourinary: DENIES: Sexual dysfunction, Urinary frequency, Urinary incontinence, Urgency, Hematuria, Dysuria, Nocturia, Penile Discharge, Testicular Pain, Testicular Swelling Musculoskeletal: DENIES: Joint pain, Muscle aches, Stiffness, Joint Swelling, Back pain, Neck pain Integumentary: DENIES: Abnormal pigmentation, Nail changes, Pruritus, Rash Hematologic/lymphatic: DENIES: Bruising, Lymphadenopathy Immunologic/allergic: DENIES: Eczema, Urticaria Neurologic: DENIES: Abnormal gait, Headache, Localized weakness, Paresthesias, Seizures, Speech Problems, Tremor, Poor Balance Psychiatric: DENIES: Anxiety, Confusion, Mood changes, Depression, Hallucinations, Agitation, Suicidal Ideation, Homicidal Ideation, Delusions Past Family Social History Past Medical History Diabetes Hypertension (diet controlled) Past Surgical History knee, ankle, shoulder Reported Medications Reviewed in the EMR Allergies: Coded Allergies: No Known Allergies (Unverified Allergy, Unknown, 10/15/17) Active Ordered Medications Reviewed in the EMR, had been taking Bactrim as per the ER M.D. Family History Patient is adopted Social History No tobacco or alcohol dependency, works in [employer] and possibly other complete Physical Exam Vital Signs Vital Signs Date Time Temp Pulse Resp B/P (MAP) Pulse Ox O2 Delivery O2 Flow Rate FiO2 10/16/17 10:44 18 10/16/17 09:40 64 18 149/72 (97) 99 10/16/17 08:00 97.5 59 18 132/75 (94) 98 10/16/17 00:00 97.9 74 20 117/61 (79) 97 10/15/17 20:40 97.7 66 20 146/83 (104) 96 10/15/17 20:38 10/15/17 19:45 67 16 139/82 (101) 95 Room Air 10/15/17 18:21 98 10/15/17 18:21 68 20 137/79 (98) 96 10/15/17 16:02 98.5 75 18 168/80 (109) 98 Physical Exam GENERAL: This is a well-nourished, well-developed patient, in no apparent distress. SKIN: 3 cm open area in the left lower abdomen, serosanguineous, indurated edges , right pubic area with small scar from apparent old abscess, right gluteal area with scar from apparent old abscess HEAD: Atraumatic. Normocephalic. No temporal or scalp tenderness. EYES: Pupils equal round and reactive. Extraocular motions intact. No scleral icterus. No injection or drainage. ENT: Nose without bleeding, purulent drainage or septal hematoma. Throat without erythema, tonsillar hypertrophy or exudate. Uvula midline. Airway patent. NECK: Trachea midline. No JVD or lymphadenopathy. Supple, nontender, no meningeal signs. CARDIOVASCULAR: Regular rate and rhythm without murmurs, gallops, or rubs. RESPIRATORY: Clear to auscultation. Breath sounds equal bilaterally. No wheezes , rales, or rhonchi. GASTROINTESTINAL: Abdomen soft, non-tender, nondistended. No hepato-splenomegaly , or palpable masses. No guarding. MUSCULOSKELETAL: Extremities without clubbing, cyanosis, or edema. No joint tenderness, effusion, or edema noted. No calf tenderness. Negative Homans sign bilaterally. NEUROLOGICAL: Awake and alert. Cranial nerves II through XII intact. Motor and sensory grossly within normal limits. Five out of 5 muscle strength in all muscle groups. Normal speech. Laboratory Laboratory Tests Test 10/15/17 17:50 10/16/17 05:47 White Blood Count 7.3 5.7 Red Blood Count 5.05 4.64 Hemoglobin 14.0 12.8 Hematocrit 42.1 39.7 Mean Corpuscular Volume 83.3 85.5 Mean Corpuscular Hemoglobin 27.7 27.6 Mean Corpuscular Hemoglobin Concent 33.2 32.3 Red Cell Distribution Width 12.2 12.6 Platelet Count 247 173 Mean Platelet Volume 8.3 9.0 Neutrophils (%) (Auto) 56.9 62.3 Lymphocytes (%) (Auto) 32.4 26.4 Monocytes (%) (Auto) 6.9 6.8 Eosinophils (%) (Auto) 3.3 4.0 Basophils (%) (Auto) 0.5 0.5 Neutrophils # (Auto) 4.2 3.6 Lymphocytes # (Auto) 2.4 1.5 Monocytes # (Auto) 0.5 0.4 Eosinophils # (Auto) 0.2 0.2 Basophils # (Auto) 0.0 0.0 CBC Comment DIFF FINAL DIFF FINAL Differential Comment Erythrocyte Sedimentation Rate 15 Prothrombin Time 10.7 Prothromb Time International Ratio 1.0 Activated Partial Thromboplast Time 27.3 Blood Urea Nitrogen 13 13 Creatinine 0.81 0.84 Random Glucose 136 130 Total Protein 7.9 Albumin 3.6 Calcium Level 9.4 8.3 Alkaline Phosphatase 92 Aspartate Amino Transf (AST/SGOT) 22 Alanine Aminotransferase (ALT/SGPT) 46 Total Bilirubin 0.5 Sodium Level 137 141 Potassium Level 3.4 3.6 Chloride Level 101 105 Carbon Dioxide Level 27.7 28.0 Anion Gap 8 8 Estimat Glomerular Filtration Rate 102 98 Lactic Acid Level 1.5 C-Reactive Protein 2.90 Date/Time Source Procedure Growth Status 10/15/17 17:50 Blood Peripheral Aerobic Blood Culture - Preliminary NO GROWTH IN 1 DAY Resulted 10/15/17 17:50 Blood Peripheral Anaerobic Blood Culture - Preliminary NO GROWTH IN 1 DAY Resulted Result Diagram: 10/16/17 0547 10/16/17 0547 Imaging 10/[address] There is a left-sided abscess and has been drained, a gallstone and kidney stone Caprini VTE Risk Assessment Caprini VTE Risk Assessment: Mod/High Risk (score >= 2) Caprini Risk Assessment Model Point Value = 1 Point Value = 2 Point Value = 3 Point Value = 5 Age 41-60 Minor surgery BMI > 25 kg/m2 Swollen legs Varicose veins or History of unexplained or recurrent spontaneous Oral contraceptives or hormone replacement Sepsis (< 1 month) Serious lung disease, including pneumonia (< 1 month) Abnormal pulmonary function Acute myocardial infarction Congestive heart failure (< 1 month) History of inflammatory bowel disease Medical patient at bed rest Age 61-74 Arthroscopic surgery Major open surgery (> 45 min) Laparoscopic surgery (> 45 min) Malignancy Confined to bed (> 72 hours) Immobilizing plaster cast Central venous access Age >= 75 History of VTE Family history of VTE Factor V Leiden Prothrombin [id number] Lupus anticoagulant Anticardiolipin antibodies Elevated serum homocysteine Heparin-induced thrombocytopenia Other congenital or acquired thrombophilia Stroke (< 1 month) Elective arthroplasty Hip, pelvis, or leg fracture Acute spinal cord injury (< 1 month) Prophylaxis Regimen Total Risk Factor Score Risk Level Prophylaxis Regimen 0-1 Low Early ambulation 2 Moderate Order ONE of the following: *Sequential Compression Device (SCD) *Heparin 5000 units SQ BID 3-4 Higher Order ONE of the following medications: *Heparin 5000 units SQ TID *Enoxaparin/Lovenox 40 mg SQ daily (WT < 150 kg, CrCl > 30 mL/min) *Enoxaparin/Lovenox 30 mg SQ daily (WT < 150 kg, CrCl > 10-29 mL/min) *Enoxaparin/Lovenox 30 mg SQ BID (WT < 150 kg, CrCl > 30 mL/min) AND/OR *Sequential Compression Device (SCD) 5 or more Highest Order ONE of the following medications: *Heparin 5000 units SQ TID (Preferred with Epidurals) *Enoxaparin/Lovenox 40 mg SQ daily (WT < 150 kg, CrCl > 30 mL/min) *Enoxaparin/Lovenox 30 mg SQ daily (WT < 150 kg, CrCl > 10-29 mL/min) *Enoxaparin/Lovenox 30 mg SQ BID (WT < 150 kg, CrCl > 30 mL/min) AND *Sequential Compression Device (SCD) Assessment and Plan Problem List: (1) Left lower quadrant abdominal abscess ICD Code: K65.1 - Peritoneal abscess Status: Acute Plan: Patient has failed outpatient treatment and has been admitted for further IV antibiotics keep wet-to-dry dressing changes twice a day Surgical consult appreciated, continue medical management, no surgical intervention needed at this time On Zosyn and vancomycin, we'll taper antibiotics for group B strep found in previous cultures, Clindamycin 7-10 d Blood cultures are negative (2) Diabetes ICD Code: E11.9 - Type 2 diabetes mellitus without complications Status: Acute Plan: Continue with Accu-Cheks, diabetes control Follow-up hemoglobin A1c, Assessment and Plan DVT prophylaxis with heparin Code Status Full code Discussed Condition With Patient, spouse Physician Certification 2 Midnight Certification Type: Admission for Inpatient Services Order for Inpatient Services The services are ordered in accordance with Medicare regulations or non- Medicare payer requirements, as applicable. In the case of services not specified as inpatient-only, they are appropriately provided as inpatient services in accordance with the 2-midnight benchmark. Estimated LOS (days): 2 2 days is the estimated time the patient will need to remain in the hospital, assuming treatment plan goals are met and no additional complications. Post-Hospital Plan: Home Problem Qualifiers (1) Diabetes: Qualified Codes: E11.8 - Type 2 diabetes mellitus with unspecified complications Kim Lovell MD Oct 16, 2017 11:34
[2017-10-16] MEDS: CLINDAMYCIN 600 MG PREMIX 50 ML IV SCH ×2 (13:07→21:18)
[2017-10-16] MEDS: HEPARIN SODIUM - SQ 10,000 UNITS/ML VIAL SQ SCH ×2 (13:49→21:19)
[2017-10-16] MEDS: metFORMIN HCL 850 MG TAB PO SCH (18:16)
[2017-10-16 20:48] LABS: HEMOGLOBIN A1a 1.8 %; HEMOGLOBIN A1b 1.2 %; HEMOGLOBIN Ao 78.3 %; HEMOGLOBIN F 1.6 %; HEMOGLOBIN LA1C 1.6 %; HEMOGLOBIN P3 4.3 %
[2017-10-16] MEDS: ACETAMINOPHEN/HYDROcodone 325 MG/7.5 MG TAB PO PRN (21:22)
[2017-10-17] VITALS: BP 124/66; PULSE 63; RESP 18; TEMP 96.6; O2SAT 96
[2017-10-17] MEDS: MORPHINE SULFATE 4 MG/ML INJ IV PUSH PRN (00:54)
[2017-10-17] MEDS: SODIUM CHLORIDE 0.9% FLUSH 10 ML FLUSH IV FLUSH PRN ×2 (00:54→05:33)
[2017-10-17] MEDS: CLINDAMYCIN 600 MG PREMIX 50 ML IV SCH (05:32)
[2017-10-17] MEDS: ACETAMINOPHEN/HYDROcodone 325 MG/7.5 MG TAB PO PRN (05:33)
[2017-10-17] MEDS: HEPARIN SODIUM - SQ 10,000 UNITS/ML VIAL SQ SCH (05:33)
[2017-10-17 07:50] VITALS: BP 130/70; PULSE 62; RESP 20; TEMP 96.9; O2SAT 95
[2017-10-17] MEDS ORDERED: PHARMACY ORDERED LAB ONE (08:45)
[2017-10-17] MEDS: metFORMIN HCL 850 MG TAB PO SCH (09:15)
[2017-10-17] MEDS: SODIUM CHLORIDE 0.9% FLUSH 10 ML FLUSH IV FLUSH SCH (09:16)
[2017-10-17 11:50] VITALS: BP 138/70; PULSE 68; RESP 20; TEMP 96.8; O2SAT 96
[2017-10-17] MEDS ORDERED: HYDR-3580 PO (13:33)
[2017-10-17] MEDS ORDERED: CLIN300C5 PO (13:33)
--- NOTE | 2017-10-17 13:34 | HHI.DCPOC ---
Discharge Care Plan Diagnosis: (1) Open wound anterior abdominal wall Goals to Promote Your Health * To prevent worsening of your condition and complications * To maintain your health at the optimal level Directions to Meet Your Goals Take your medications as prescribed Follow your dietary instruction Follow activity as directed Keep your appointments as scheduled Take your immunizations and boosters as scheduled If your symptoms worsen call your PCP, if no PCP go to Urgent Care Center or Emergency Room Smoking is Dangerous to Your Health. Avoid second hand smoke Call the 24-hour hour crisis hotline for domestic abuse at Kim Lovell MD Oct 17, 2017 13:34
--- NOTE | 2017-10-17 13:36 | HHI.DS ---
Discharge Summary Admission Date Oct 16, 2017 at 10:08 Discharge Date: Oct 17, 2017 Admitting Diagnosis abdominal wall abscess, failed outpatient therapy, diabetes (1) Left lower quadrant abdominal abscess ICD Code: K65.1 - Peritoneal abscess Status: Acute (2) Diabetes ICD Code: E11.9 - Type 2 diabetes mellitus without complications Status: Acute Procedures none Brief History - From Admission Patient is a 47-year-old gentleman with diabetes. He had a left abdominal wall abscess that started about a week ago. He came to the emergency room 10/13 and had the area drained. Cultures from that date grew out group B strep. Patient was prescribed antibiotics in the form of ?Bactrim. Patient says the abdomen and began to hurt more and he had some more drainage. He came to the emergency room. He was started on IV antibiotics. Patient has not had any fevers or chills. He reports periodically gets skin infections which improve over time. For this left abdominal area the patient was applying Neosporin and dressing changes daily. He does have diabetes but this has been managed with metformin. He does not follow up with any primary care doctors because he says he can't get an appointment on his day off CBC/BMP: 10/16/17 0547 10/16/17 0547 Significant Findings Laboratory Tests Test 10/15/17 17:50 10/16/17 05:47 10/17/17 05:05 Random Glucose 136 MG/DL (74-106) 130 MG/DL (74-106) Potassium Level 3.4 MEQ/L (3.5-5.1) C-Reactive Protein 2.90 MG/DL (0.00-0.30) Hemoglobin 12.8 GM/DL (13.0-17.0) Calcium Level 8.3 MG/DL (8.5-10.1) Hemoglobin A1c 11.0 % (4.3-6.0) Triglycerides Level 363 MG/DL (42-150) HDL Cholesterol 34.0 MG/DL (40.0-60.0) PE at Discharge GENERAL: This is a well-nourished, well-developed patient, in no apparent distress. CARDIOVASCULAR: Regular rate and rhythm without murmurs, gallops, or rubs. RESPIRATORY: Clear to auscultation. Breath sounds equal bilaterally. No wheezes , rales, or rhonchi. GASTROINTESTINAL: Left abdominal open wound, decreased induration and erythema, Abdomen soft, non-tender, nondistended. Normal active bowel sounds MUSCULOSKELETAL: Extremities without clubbing, cyanosis, or edema. NEURO: Alert & Oriented x4 to person, place, time, situation. Moves all ext x4 Pt update on day of discharge Patient seen today for follow-up. Pain is improved. Patient inventory and hallway and patient education has been provided. Discharge plans discussed with patient and nursing team Hospital Course Patient was seen and evaluated and treated for left abdominal abscess which has been drained after I&D by ER MJaney. Cultures did grow group B strep and patient was treated with antibiotics accordingly. His diabetes was managed and education was provided for wound care. He was seen by general surgery in consultation and recommend for further outpatient management Pt Condition on Discharge: Good Discharge Disposition: Discharge Home Discharge Time: <= 30 minutes Discharge Instructions DIET: Follow Instructions for: Diabetic Diet Activities you can perform: Regular-No Restrictions Follow up Referrals: Surgical - 2-3 Days with Jhoan Dorsey MD New Medications: Clindamycin (Clindamycin) 300 Mg Cap 600 MG PO Q8H for Infection, #21 CAP 0 Refills Hydrocodone/Acetaminophen (Hydrocodone-Acetamin 7.5-325) 7.5 Mg-325 Mg Tablet 1 TAB PO Q6H PRN for pain 4-6, #20 TAB dressing changes Continued Medications: Metformin (Metformin) 850 Mg Tab 850 MG PO BIDPC for Blood Sugar Management for 30 Days, TAB 0 Refills Kim Lovell MD Oct 17, 2017 13:36
== END 2017-10-17 14:56 | disposition home or self-care (01) | DRG 603 ==
LOC: PHED 15:46 → PHEDA 19:18 → PH3A 20:25 → OBSVTOIN 10-16 10:08
PROVIDERS: ADMIT Hospitalist; ATTEND Hospitalist
DX: L02.211 Cutaneous abscess of abdominal wall (principal); B95.1 Streptococcus, group B, as the cause of diseases classified elsewhere; E11.65 Type 2 diabetes mellitus with hyperglycemia; Z79.84 Long term (current) use of oral hypoglycemic drugs; I10 Essential (primary) hypertension; E66.3 Overweight; Z68.38 Body mass index [BMI] 38.0-38.9, adult; E65 Localized adiposity; E78.00 Pure hypercholesterolemia, unspecified
CPT/HCPCS: 80048; 80053; 80061; 82948; 83036; 83605; 85025; 85610; 85652; 85730; 86140; 87040; J1644; J2270; J2405; J2543; J3370; J7030; J7040; J7050

== ENCOUNTER 2018-03-23 21:35 | Emergency (ER) | payer BC ==
[~2018-03-23] VITALS: Ht 160 cm; Wt 100.7 kg
[~2018-03-23 21:35] MED LIST changes: +CLIN300C5 PO; +HYDR-3580 PO
[2018-03-23 21:39] VITALS: BP 174/100; PULSE 77; RESP 18; TEMP 97.8; O2SAT 98
[2018-03-23] MEDS ORDERED: SODIUM CHLOR 0.9% 1000 ML INJ 1,000 ML IV ONE (21:54)
--- NOTE | 2018-03-23 21:58 | PD ---
HPI Chief Complaint: Abdominal Pain Time Seen by Provider: 21:54 Travel History International Travel<30 days: No Contact w/Intl Traveler<30days: No Traveled to known affect area: No History of Present Illness HPI The patient is a 47-year-old male that complains of right lower quadrant/right flank abdominal pain for 2 days. The pain goes down to the testicles. The pain is sharp and a 10/10. The patient does have a history of kidney stones in the past and this feels like a kidney stone. He denies any fever. He does have nausea without vomiting. He denies any diarrhea. PFSH Past Medical History Arthritis: Yes Asthma: Yes (EXERCISE INDUCED) Autoimmune Disease: No Blood Disorders: No Anxiety: Yes Depression: Yes Heart Rhythm Problems: No Cancer: No Cardiovascular Problems: Yes (hx of HTN but controlled by diet) High Cholesterol: Yes Chest Pain: No Congestive Heart Failure: No COPD: No Cerebrovascular Accident: No Diabetes: Yes Diminished Hearing: No Endocrine: Yes Gastrointestinal Disorders: Yes (chronic diarrhea) GERD: Yes Genitourinary: Yes Hiatal Hernia: No Hypertension: Yes (TAKES NO MEDS) Immune Disorder: No Kidney Stones: Yes Musculoskeletal: Yes (ARTHRITIS) Neurologic: Yes (BROKEN NECK) Psychiatric: Yes Reproductive: No Respiratory: Yes (ASTHMATIC CONDITION) Immunizations Current: No Migraines: No Renal Failure: No Seizures: No Sleep Apnea: No Thyroid Disease: No Ulcer: No PNEUMOCCOCAL Vaccine (Year): 2 Past Surgical History Abdominal Surgery: No Cardiac Surgery: No Ear Surgery: No Endocrine Surgery: No Eye Surgery: No Genitourinary Surgery: Yes (STENTS, LITHOTRIPSY- KIDNEY STONES REMOVED) Gynecologic Surgery: No Oral Surgery: No Thoracic Surgery: No Other Surgery: Yes (ANKLE SURGERY, RT SHOULDER, NECK, CYST REMOVED ON COCCYX) Social History Alcohol Use: Yes (Rarely) Tobacco Use: No Substance Use: No Allergies-Medications (Allergen,Severity, Reaction): Coded Allergies: No Known Allergies (Unverified Allergy, Unknown, 03/23/18) Reported Meds & Prescriptions Reported Meds & Active Scripts Active Reported Fish Oil + D3 (Fish Oil-Cholecalciferol) 1,200-1,000 Mg-Unit Cap 1 Cap PO BID Metformin (Metformin HCl) 1,000 Mg Tab 1,000 Mg PO BIDPC Victoza Inj (Liraglutide Inj) 18 Mg/3 Ml Pen 1.2 Mg SQ DAILY Review of Systems Except as stated in HPI: all other systems reviewed are Neg Physical Exam Narrative GENERAL: Well-nourished, well-developed patient in moderate apparent distress with his right lower quadrant abdominal pain. His vital signs show blood pressure 174/100 but are otherwise normal. SKIN: Focused skin assessment warm/dry. HEAD: Normocephalic. EYES: No scleral icterus. No injection or drainage. NECK: Supple, trachea midline. No JVD or lymphadenopathy. CARDIOVASCULAR: Regular rate and rhythm without murmurs, gallops, or rubs. RESPIRATORY: Breath sounds equal bilaterally. No accessory muscle use. GASTROINTESTINAL: Abdomen soft, with tenderness of the right pelvis and right lower quadrant to direct palpation, nondistended. No guarding or rebound is present. MUSCULOSKELETAL: No cyanosis, or edema. BACK: Nontender without obvious deformity. No CVA tenderness. Data Data Last Documented VS Vital Signs Date Time Temp Pulse Resp B/P (MAP) Pulse Ox O2 Delivery O2 Flow Rate FiO2 03/23/18 22:20 76 20 162/93 (116) 96 03/23/18 21:39 97.8 Orders Orders Complete Blood Count With Diff (03/23/18 21:54) Basic Metabolic Panel (Bmp) (03/23/18 21:54) Urinalysis - C+S If Indicated (03/23/18 21:54) Ct Abd/Pel W/O Iv Contrast (03/23/18 21:54) Ecg Monitoring (03/23/18 21:54) Iv Access Insert/Monitor (03/23/18 21:54) Ketorolac Inj (Toradol Inj) (03/23/18 22:00) Morphine Inj (Morphine Inj) (03/23/18 22:00) Ondansetron Inj (Zofran Inj) (03/23/18 22:00) Sodium Chloride 0.9% Flush (Ns Flush) (03/23/18 22:00) Sodium Chlor 0.9% 1000 Ml Inj (Ns 1000 M (03/23/18 21:54) Labs Laboratory Tests Test 03/23/18 21:50 White Blood Count 8.2 TH/MM3 Red Blood Count 5.13 MIL/MM3 Hemoglobin 15.1 GM/DL Hematocrit 43.3 % Mean Corpuscular Volume 84.5 FL Mean Corpuscular Hemoglobin 29.3 PG Mean Corpuscular Hemoglobin Concent 34.7 % Red Cell Distribution Width 12.7 % Platelet Count 188 TH/MM3 Mean Platelet Volume 8.9 FL Neutrophils (%) (Auto) 52.2 % Lymphocytes (%) (Auto) 36.7 % Monocytes (%) (Auto) 5.1 % Eosinophils (%) (Auto) 2.6 % Basophils (%) (Auto) 3.4 % Neutrophils # (Auto) 4.3 TH/MM3 Lymphocytes # (Auto) 3.0 TH/MM3 Monocytes # (Auto) 0.4 TH/MM3 Eosinophils # (Auto) 0.2 TH/MM3 Basophils # (Auto) 0.3 TH/MM3 CBC Comment DIFF FINAL Differential Comment Blood Urea Nitrogen 17 MG/DL Creatinine 0.95 MG/DL Random Glucose 146 MG/DL Calcium Level 9.6 MG/DL Sodium Level 141 MEQ/L Potassium Level 4.5 MEQ/L Chloride Level 106 MEQ/L Carbon Dioxide Level 27.7 MEQ/L Anion Gap 7 MEQ/L Estimat Glomerular Filtration Rate 85 ML/MIN MDM Medical Decision Making Medical Screen Exam Complete: Yes Emergency Medical Condition: Yes Medical Record Reviewed: Yes Interpretation(s) The CT abdomen/pelvis without IV contrast shows acute obstructive uropathy in the right distal ureter secondary to a 6 mm calcified calculus which is lodged approximately 5 cm proximal to the UVJ. Also noted is an 8 mm calcified nonobstructing lower pole left renal calculus. A fatty liver is also incidentally noted an uncomplicated colonic diverticulosis is noted along with cholelithiasis. There is degenerative changes and scoliosis of the thoracolumbar spine. Differential Diagnosis Right ureteral stone, appendicitis, urinary tract infection, electrolyte disorder, dehydration Narrative Course The patient has a right 6 mm ureteral stone. He states he has passed larger stones before and wants to try to pass it at home. Plan: He is given prescriptions for ibuprofen, Percocet 7.5, Phenergan and Flomax. He needs to follow-up with a urologist. Diagnosis Primary Impression: Right ureteral calculus Additional Instructions: As we discussed, do not drink alcohol or drive on the Percocet 7.5. Follow-up with urologist. The 6 mm stone is normally a hard stone to pass but apparently you have passed larger stones. Med/Other Pt SpecificInfo: Prescription(s) given Scripts Ibuprofen (Ibuprofen) 600 Mg Tab 600 MG PO TID for Arthritis Pain, #33 TAB 0 Refills Prov: Cortez Luna MD 03/23/18 Promethazine (Phenergan) 25 Mg Tablet 25 MG PO Q6H Y for NAUSEA OR VOMITING, #21 TAB 0 Refills Prov: Cortez Luna MD 03/23/18 Oxycodone-Acetaminophen (Percocet) 7.5-325 mg Tab 1 TAB PO Q4H Y for PAIN, #21 TAB 0 Refills Prov: Cortez Luna MD 03/23/18 Tamsulosin (Flomax) 0.4 Mg Cap 0.4 MG PO HS for Manage Prostate Problems, #30 CAP 0 Refills Prov: Cortez Luna MD 03/23/18 Disposition: 01 DISCHARGE HOME Condition: Stable Cortez Luna MD March 23, 2018 21:58
[2018-03-23] MEDS ORDERED: SODIUM CHLORIDE 0.9% FLUSH 10 ML FLUSH IVF PRN (22:00)
[2018-03-23] MEDS ORDERED: MORPHINE SULFATE 4 MG/ML INJ IV PUSH ONE (22:00)
[2018-03-23] MEDS ORDERED: KETOROLAC TROMETHAMINE 30 MG/ML (IVP) VIAL IV PUSH ONE (22:00)
[2018-03-23] MEDS ORDERED: ONDANSETRON HCL 4 MG/2 ML VIAL IV PUSH ONE (22:00)
[2018-03-23 22:08] LABS: AUTOMATED NEUTROPHIL # 4.3 TH/MM3 (1.8-7.7); BASOPHIL # 0.3 TH/MM3 (0-0.2); BASOPHIL % 3.4 % (0.0-2.0); EOSINOPHIL # 0.2 TH/MM3 (0-0.4); EOSINOPHIL % 2.6 % (0.0-4.0); HEMATOCRIT 43.3 % (39.0-51.0); HEMOGLOBIN 15.1 GM/DL (13.0-17.0); LYMPH % 36.7 % (9.0-44.0); MEAN CELL VOLUME 84.5 FL (80.0-100.0); MEAN CORPUSCULAR HEMOGLOBIN 29.3 PG (27.0-34.0); MEAN CORPUSCULAR HGB CONC 34.7 % (32.0-36.0); MEAN PLATELET VOLUME 8.9 FL (7.0-11.0); MONO % 5.1 % (0.0-8.0); MONOCYTE # 0.4 TH/MM3 (0-0.9); NEUT % 52.2 % (16.0-70.0); PLATELET COUNT 188 TH/MM3 (150-450); RED BLOOD COUNT 5.13 MIL/MM3 (4.50-5.90); RED CELL DISTRIBUTION WIDTH 12.7 % (11.6-17.2); WHITE BLOOD COUNT 8.2 TH/MM3 (4.0-11.0)
[2018-03-23 22:20] VITALS: BP 162/93; PULSE 76; RESP 20; O2SAT 96
[2018-03-23 22:24] LABS: CALCIUM 9.6 MG/DL (8.5-10.1)
[2018-03-23] MEDS ORDERED: METF1000 PO (22:24)
[2018-03-23] MEDS ORDERED: FISHCAP4 PO (22:24)
[2018-03-23] MEDS ORDERED: VICT18IN SQ (22:24)
[2018-03-23 22:25] LABS: BICARBONATE 27.7 MEQ/L (21.0-32.0)
[2018-03-23 22:28] LABS: CREATININE 0.95 MG/DL (0.60-1.30)
--- NOTE | 2018-03-23 23:00 | RADRPT ---
EXAM DATE/TIME: 03/23/2018 22:28 [facility] COMPARISON: No previous studies available for comparison. INDICATIONS : Right flank pain. ORAL CONTRAST: No oral contrast ingested. RADIATION DOSE: 17.67 CTDIvol (mGy) MEDICAL HISTORY : Renal calculi. Gastroesophageal reflux disease. Diabetes mellitus type 2.Hypertension. SURGICAL HISTORY : Lithotripsy. ENCOUNTER: Initial ACUITY: 1 day PAIN SCALE: 10/10 LOCATION: Right flank TECHNIQUE: Volumetric scanning of the abdomen and pelvis was performed. Using automated exposure control and ad justment of the mA and/or kV according to patient size, radiation dose was kept as low as reasonably achievable to obtain optimal diagnostic quality images. DICOM format image data is available electro nically for review and comparison. FINDINGS: LOWER LUNGS: The visualized lower lungs are clear. LIVER: The liver is enlarged and demonstrates diffuse fatty infiltration. No focal hepatic mass is noted. Th ere is no dilation of the biliary tree. A tiny calcified gallstone is noted within the gallbladder marilu men. SPLEEN: Normal size without lesion. PANCREAS: Within normal limits. KIDNEYS: There is acute obstructive uropathy of the right distal ureter secondary to a 6 mm calcified calculus which is lodged approximately 5 cm proximal to the ureterovesical junction and results in mild urete ropelvicatelectasis on the right. There is an 8mm calcified nonobstructing lower pole left renal calc ulus. ADRENAL GLANDS: Within normal limits. VASCULAR: There is no aortic aneurysm. BOWEL/MESENTERY: Uncomplicated colonic diverticulosis is noted. No acute diverticulitis is noted. The appendix is norm al. ABDOMINAL WALL: Within normal limits. RETROPERITONEUM: There is no lymphadenopathy. BLADDER: No wall thickening or mass. REPRODUCTIVE: Within normal limits. INGUINAL: There is no lymphadenopathy or hernia. MUSCULOSKELETAL: Degenerative changes and scoliosis of the thoracolumbar spine are noted. CONCLUSION: 1. Acute obstructive uropathy of the right distal ureter secondary to a 6 mm calcified calculus which is lodged approximately 5 cm proximal to the ureterovesical junction and results in mild ureteropelv icatelectasis on the right. 2. 8mm calcified nonobstructing lower pole left renal calculus. 3. Enlarged fatty liver. 4. Uncomplicated colonic diverticulosis. 5. Cholelithiasis. 6. Degenerative changes and scoliosis of the thoracolumbar spine. Ace Obrien MD on March 23, 2018 at 22:52 Board Certified Radiologist. This report was verified electronically.
[2018-03-23] MEDS ORDERED: PROM25TA10 PO (23:34)
[2018-03-23] MEDS ORDERED: IBUP-232 PO (23:34)
[2018-03-23] MEDS ORDERED: PERC7.5T13 PO (23:34)
[2018-03-23] MEDS ORDERED: TAMS5CAP PO (23:34)
[2018-03-23] MEDS ORDERED: SODIUM CHLORIDE 0.9% FLUSH 10 ML FLUSH IV FLUSH PRN (23:45)
[2018-03-23] MEDS ORDERED: TAMSULOSIN HCL 0.4 MG CAP PO ONE (23:45)
[2018-03-23] MEDS ORDERED: MORPHINE SULFATE 8 MG/ML INJ IV PUSH ONE (23:45)
[2018-03-23 23:56] LABS: BILIRUBIN, URINE NEG (NEG); BLOOD, URINE LARGE (NEG); GLUCOSE,URINE 100 mg/dL (NEG); KETONE, URINE NEG (NEG); NITRITE,URINE NEG (NEG); PH, URINE 5.5 (5.0-8.5); URINE COLOR YELLOW (YELLW/STRAW); URINE LEUKOCYTE ESTERASE NEG (NEG)
[2018-03-24 00:02] LABS: SPERM, URINE FEW; SQUAMOUS EPITHELIAL CELL URINE 0-5 /hpf (0-5)
[2018-03-24 00:03] LABS: CALCIUM OXALATE CRYSTALS,URINE FEW /hpf
[2018-03-24 00:32] VITALS: BP 135/76; PULSE 68; RESP 20; O2SAT 98
== END 2018-03-24 00:38 | disposition home or self-care (01) ==
LOC: PHED 21:35
DX: N20.1 Calculus of ureter (principal); I10 Essential (primary) hypertension; E11.9 Type 2 diabetes mellitus without complications; F32.9 Major depressive disorder, single episode, unspecified; F41.9 Anxiety disorder, unspecified; E78.00 Pure hypercholesterolemia, unspecified; J45.909 Unspecified asthma, uncomplicated; K21.9 Gastro-esophageal reflux disease without esophagitis; M19.90 Unspecified osteoarthritis, unspecified site
CPT/HCPCS: 74176; 80048; 81001; 85025; 96361; 96374; 96375; 96376; 99284; J1885; J2270; J2405; J7030